=== PATIENT | male | born 1980 | race Caucasian/White ===

== ENCOUNTER → 2016-09-02 | Outpatient (REF) ==
[~2016-09-02] MED LIST: ALBUTEROL0.09 MG/A1 IH; AMOXICILLIN 50500 MG PO; BENTYL 20MG20 MG/TAB PO; DAY T PO; NORCO 325 MG-51 TAB PO; PREDNISONE20 MG PO; PROAIR HFA0.09 MG/AC IH; PROBIOTIC FORMU1 CAP PO; PROTONIX 40MG T40 MG PO; PROVENTIL0.09 MG/A1 IH; SINGULAIR 110 MG/TAB PO; [UNRECOGNIZED DRUG - OTHER] PO; [UNRECOGNIZED DRUG - REMARK]
== END ==
LOC: WSOH 15:18
DX: Z23 Encounter for immunization (principal)

== ENCOUNTER 2016-10-08 06:41 | Day surgery (SDC) | payer OTHER ==
[2016-10-08] VITALS (12 sets, daily range): BP systolic 102–135; BP diastolic 54–91; PULSE 57–75; TEMP 97.8–97.9
[~2016-10-08] VITALS: Ht 180.3 cm; Wt 87.2 kg
[~2016-10-08 06:41] MED LIST changes: -PROBIOTIC FORMU1 CAP PO; -PROTONIX 40MG T40 MG PO
[2016-10-08] MEDS ORDERED: PROBIOTIC FORMU1 CAP PO (07:05)
[2016-10-08] MEDS ORDERED: PROTONIX 40MG T40 MG PO (08:36)
== END 2016-10-08 11:33 | disposition home or self-care (01) ==
LOC: SDCO 06:41
DX: K29.70 Gastritis, unspecified, without bleeding (principal); K21.0 Gastro-esophageal reflux disease with esophagitis; K44.9 Diaphragmatic hernia without obstruction or gangrene; K31.84 Gastroparesis; K30 Functional dyspepsia; J45.909 Unspecified asthma, uncomplicated; F41.9 Anxiety disorder, unspecified; R19.7 Diarrhea, unspecified; Z87.891 Personal history of nicotine dependence
CPT/HCPCS: OP; J2250; J2405; J3010

== ENCOUNTER → 2017-01-05 | Outpatient (REF) ==
[~2017-01-05] MED LIST changes: +PROBIOTIC FORMU1 CAP PO; +PROTONIX 40MG T40 MG PO
== END ==
LOC: WSOH 17:00
DX: Z02.89 Encounter for other administrative examinations (principal)

== ENCOUNTER 2020-07-21 23:00 | Emergency (ER) | payer OTHER ==
[~2020-07-21] VITALS: Ht 180.3 cm; Wt 95.5 kg
[2020-07-22 00:40] VITALS: BP 142/90; PULSE 87
== END 2020-07-22 01:13 | disposition home or self-care (01) ==
LOC: COL.ER 23:00
DX: S52.125A Nondisplaced fracture of head of left radius, initial encounter for closed fracture (principal); S93.401A Sprain of unspecified ligament of right ankle, initial encounter; J45.909 Unspecified asthma, uncomplicated; Z87.891 Personal history of nicotine dependence; W10.8XXA Fall (on) (from) other stairs and steps, initial encounter

== ENCOUNTER → 2020-11-24 | Outpatient (REF) | LOC: COL.LAB 15:16 | DX: Z20.822 Contact with and (suspected) exposure to COVID-19 (principal) ==